=== PATIENT | female | born 2000 | race African-American/Black ===

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

== ENCOUNTER 2021-05-11 02:35 | Inpatient (IN) ==
[2021-05-11] MEDS ORDERED: BUTORPHANOL 2 MG/ML VIAL IV PRN (02:51)
[2021-05-11] MEDS ORDERED: ONDANSETRON 4 MG/2 ML VIAL IV PRN (02:51)
[2021-05-11] MEDS ORDERED: MEPERIDINE 50 MG/1 ML VIAL IV PRN (02:51)
[2021-05-11] MEDS ORDERED: OXYTOCIN/LR 20 UNIT/1,000 ML BAG IV SCH (03:00)
[2021-05-11 03:23] LABS: Basophils % 0.1 % (0.0-0.8); Eosinophils # 0.2 10*3/uL (0.0-0.87); Hematocrit 29.4 VOL% (35.7-47.0); Hemoglobin 8.7 GM/DL (12.0-16.0); Immature Granulocytes % 0.8 %; Immature Granulocytes Absolute 0.06 #; Lymphocytes # 2.1 10*3/uL (1.4-4.0); Lymphocytes % 26.5 % (21.3-54.2); Mean Corpuscular HGB Conc 29.6 GM/DL (32-36); Mean Corpuscular Volume 76.2 FL (87-102); Mean Platelet Volume 11.1 FL (9.6-12.0); Monocytes % 9.9 % (1.7-12.7); NRBC # 0.04 10*3/uL; Neutrophils % 60.7 % (38.7-73.9); Platelet Count 247 T/CUMM (130-400); Red Blood Count 3.86 MC/CUMM (3.8-5.5); Red Cell Distribution Width 18.4 % (9.3-17.3); White Blood Count 7.9 T/CUMM (4-12)
[2021-05-11] MEDS ORDERED: AMPICILLIN INJ 2,000 MG in SODIUM CHLORIDE 0.9% 100 ML IV ONE (03:37)
[2021-05-11 03:43] LABS: Eosinophils 3 % (0-10); Hypochromia 1+; Lymphocytes 27 % (20-55); Microcytosis 1+; Platelet Estimate Adequate; Segmented Neutrophils 60 % (50-85); Total Cells Counted 100
[2021-05-11] MEDS: LACTATED RINGERS 1,000 ML IV SCH ×3 (04:10→10:03)
[2021-05-11] MEDS ORDERED: NALOXONE 0.4 MG/ML VIAL IV PRN (06:27)
[2021-05-11] MEDS ORDERED: ePHEDrine 50 MG/ML VIAL IV PRN (06:27)
[2021-05-11] MEDS ORDERED: diphenhydrAMINE 50 MG/1 ML VIAL IV PRN (06:27)
[2021-05-11] MEDS ORDERED: hydrOXYzine HCL 25 MG/1 ML VIAL IM PRN (06:27)
[2021-05-11] MEDS ORDERED: FAMOTIDINE 20 MG/2 ML VIAL IV ONE (06:29)
[2021-05-11] MEDS ORDERED: CITRIC ACID/SODIUM CITRATE 30 ML UDCUP PO ONE (06:29)
[2021-05-11] MEDS ORDERED: fentaNYL 2 MCG/ROPIV 0.2% EPID 100 ML EPIDURAL SCH (06:30)
[2021-05-11 07:43] LABS: Bacteria,Urine Occasional /HPF (Few); Bilirubin,Urine Negative (Negative); Blood, Urine Negative (Negative); Glucose,Urine (UA) Negative (Negative); Ketones,Urine Negative (Negative); Mucus,Urine Occasional /LPF (Occasional); Nitrite,Urine Positive (Negative); Protein,Urine Negative; RBC,Urine 4 /HPF (0-4); Urine Appearance CLEAR (Clear); Urine Color Yellow (Yellow); Urine Specific Gravity 1.013 (1.001-1.035); Urine Urobilinogen < 2.0 EU/DL (<2.0)
[2021-05-11] MEDS: AMPICILLIN INJ 1,000 MG in SODIUM CHLORIDE 0.9% 100 ML IV SCH ×2 (08:39→11:57)
[2021-05-11] MEDS ORDERED: miSOPROStoL 200 MCG TABLET ONE (14:26)
[2021-05-11] MEDS ORDERED: CARBOPROST TROMETHAMINE 250 MCG/ML AMP IM ONE (14:27)
[2021-05-11] MEDS ORDERED: METHYLERGONOVINE 0.2 MG/1 ML AMP ONE (14:27)
[2021-05-11 15:41] LABS: Cord Arterial Blood HCO3 20.8 MMOL/L
[2021-05-11 15:43] LABS: Cord Venous Blood HCO3 22.1 MMOL/L; Cord Venous Blood PCO2 38.1 MMHG; Cord Venous Blood PO2 31.2
[2021-05-11] MEDS ORDERED: DIPH/TET/ACEL PERT BOOSTER VACCINE 0.5 ML VIAL IM ONE (20:18)
[2021-05-11] MEDS ORDERED: WITCH HAZEL PADS 100/JAR TOP PRN (20:18)
[2021-05-11] MEDS ORDERED: RHO(D) IMMUNE GLOBULIN 300 MCG SYRINGE IM ONE (20:18)
[2021-05-11] MEDS ORDERED: OXYTOCIN/LR 20 UNIT/1,000 ML BAG IV ONE (20:18)
[2021-05-11] MEDS ORDERED: HYDROCORTISONE 2.5% RECTAL CREAM 30 GM TUBE TOP PRN (20:18)
[2021-05-11] MEDS ORDERED: MEASLES/MUMPS/RUBELLA VACCINE 0.5 ML VIAL SUBCUT ONE (20:18)
[2021-05-11] MEDS ORDERED: LANOLIN 50% CREAM 0.3 OZ TUBE TOP PRN (20:18)
[2021-05-11] MEDS ORDERED: ACETAMINOPHEN 325 MG TABLET PO PRN (20:18)
[2021-05-11] MEDS ORDERED: oxyCODONE/ACETAMINOPHEN 5-325 MG TABLET PO PRN (20:18)
[2021-05-11] MEDS ORDERED: BISACODYL 10 MG SUPP RECTAL PRN (20:18)
[2021-05-11] MEDS ORDERED: BENZOCAINE 20%/MENTHOL 0.5% SPRAY 56 GM CAN TOP PRN (20:18)
[2021-05-11] MEDS: IBUPROFEN 800 MG TABLET PO PRN (21:09)
[2021-05-11] MEDS: DOCUSATE SODIUM 100 MG CAPSULE PO SCH (21:09)
[2021-05-11] MEDS: oxyCODONE/ACETAMINOPHEN 5-325 MG TABLET PO PRN (21:09)
[2021-05-12 05:16] LABS: Basophils % 0.2 % (0.0-0.8); Eosinophils # 0.1 10*3/uL (0.0-0.87); Eosinophils % 1.1 % (0.00-10.9); Hematocrit 25.7 VOL% (35.7-47.0); Hemoglobin 7.5 GM/DL (12.0-16.0); Immature Granulocytes % 0.5 %; Immature Granulocytes Absolute 0.07 #; Lymphocytes # 2.1 10*3/uL (1.4-4.0); Lymphocytes % 16.1 % (21.3-54.2); Mean Corpuscular HGB Conc 29.2 GM/DL (32-36); Mean Corpuscular Volume 77.2 FL (87-102); Mean Platelet Volume 11.8 FL (9.6-12.0); Monocytes % 7.4 % (1.7-12.7); NRBC # 0.02 10*3/uL; Neutrophils % 74.7 % (38.7-73.9); Platelet Count 215 T/CUMM (130-400); Red Blood Count 3.33 MC/CUMM (3.8-5.5); Red Cell Distribution Width 18.4 % (9.3-17.3); White Blood Count 13.1 T/CUMM (4-12)
[2021-05-12] MEDS: FERROUS SULFATE 325 MG TABLET PO SCH ×2 (08:13→21:16)
[2021-05-12] MEDS: DOCUSATE SODIUM 100 MG CAPSULE PO SCH ×2 (08:13→20:09)
[2021-05-12] MEDS ORDERED: SODIUM CHLORIDE 0.9% 1,000 ML IV PRN (09:23)
[2021-05-12 18:46] LABS: Hematocrit 28.5 VOL% (35.7-47.0); Hemoglobin 8.7 GM/DL (12.0-16.0)
[2021-05-12] MEDS: IBUPROFEN 800 MG TABLET PO PRN (20:09)
[2021-05-12] MEDS: oxyCODONE/ACETAMINOPHEN 5-325 MG TABLET PO PRN (20:09)
[2021-05-13 08:40] VITALS: BP 122/61
[2021-05-13] MEDS: DOCUSATE SODIUM 100 MG CAPSULE PO SCH (08:48)
[2021-05-13] MEDS ORDERED: FERROUS SULFATE 325 MG TABLET PO SCH (09:00)
== END 2021-05-13 13:35 | disposition home or self-care (01) | DRG 560 ==
LOC: N.LD 02:35 → N.OB 20:17
PROVIDERS: ADMIT Obstetrics & Gynecology; ATTEND Obstetrics & Gynecology